=== PATIENT | male | born 1945 | race Caucasian/White ===

== ENCOUNTER 2017-08-09 01:17 | Emergency (ER) | payer MEDICARE ==
[2017-08-09 01:33] VITALS: BP 144/69
--- NOTE | 2017-08-09 01:34 | ED Physician Documentation ---
General Adult - HISTORIAN Historian: patient - HPI Stated Complaint: left hand pain Chief Complaint: General Adult Onset: hours (8) Timing: still present Severity: moderate Further Comments: yes (Pt is a 71 yo male who injured his hand when he was cleaning his garage. Pt was pulling something that gave way and pt's hand hit the wall behind him. Pt has had pain on the dorsum over the metacarpals of the L hand.) - ROS CONST: no problems EYES/ENT: none CVS/RESP: none GI/: none MS/SKIN/LYMPH: other (L hand pain) - PAST HX Past History: other (DM, Heart Dz, CABG, NC, cardiac stents, carpel tunnel) Allergies/Adverse Reactions: Allergies Allergy/AdvReac Type Severity Reaction Status Date / Time No Known Allergies Allergy Verified 08/09/17 01:26 - SOCIAL HX Smoking History: chew - FAMILY HX Family History: No - VITAL SIGNS Vital Signs: Vital Signs Temp Pulse Resp BP Pulse Ox 98.2 F 76 16 144/69 93 08/09/17 01:20 08/09/17 01:20 08/09/17 01:20 08/09/17 01:20 08/09/17 01:20 - REVIEWED ASSESSMENTS Nursing Assessment Reviewed: Yes Vitals Reviewed: Yes Progress - Progress Progress: x-ray L hand - neg ED Results Lab/Radiology - Orders Orders: ED Orders Category Date Time Status HAND 3 VIEWS OR MORE [RAD] Stat Exams 08/09/17 Ordered General Adult Physical Exam - PHYSICAL EXAM GENERAL APPEARANCE: mild distress NECK: normal inspection, supple RESPIRATORY: no resp distress, chest non-tender, breath sounds normal CVS: reg rate & rhythm, heart sounds normal BACK: normal inspection, no CVA tenderness SKIN: warm/dry, normal color EXTREMITIES: normal range of motion, no evidence of injury, other (tenderness over metacarpals of L hand, normal appearance, normal ROM) NEURO: oriented X3, motor nml, sensation nml Discharge Clincal Impression: Musculoskeletal pain Referrals: Primary Doctor,No [Primary Care Provider] - Condition: Good Disposition: 01 HOME, SELF-CARE Decision to Admit: NO Decision Time: 02:09
--- NOTE | 2017-08-09 08:14 | Diagnostic Imaging Report ---
MANJINDER PAIGE [facility] [address] [facility] [address] [place] [address]. [id number] Report Submission Date: Aug 09, 2017 2:04:05 AM CDT Patient Study Name: SUMI PATINO Date: Aug 09, 2017 1:48:07 AM CDT Modality Type: DX Gender: M Description: UPPER EXTREMITY : 47 Institution: [facility] Physician: MANJINDER PAIGE Left hand, 3 views. History: LEFT HAND INJURY X 1DAY Findings: The osseous structures are intact without acute fracture. The joint space and alignment are normal. There is no soft tissue swelling. Impression: 1. No acute osseous abnormality. Electronically signed on Aug 09, 2017 2:04:05 AM CDT by: Abdulkadir COOMBS
== END 2017-08-09 02:10 | disposition home or self-care (01) ==
LOC: ED 01:17
DX: M79.642 Pain in left hand (principal)
CPT/HCPCS: 73130; 99282